=== PATIENT | female | born 1940 ===

== ENCOUNTER 2022-06-21 07:30 | Observation (INO) ==
[~2022-06-21 07:30] MED LIST: Buffered Lidocaine 1% SYRIN 1 ml INTRADERM ONE; Lactated Ringers 1000 ml BAG 1,000 ML IV SCH
[2022-06-21] MEDS ORDERED: Naloxone 0.4 mg VIAL 0.4 mg/ml 1 ml VIAL IV PRN (07:52)
[2022-06-21] MEDS ORDERED: fentaNYL 100 mcg/2 ml 50 MCG/ML VIAL IV PRN (07:52)
[2022-06-21] MEDS ORDERED: Ondansetron 4 mg VIAL 2 MG/ML 2 ml VIAL IV PRN ×2 (07:52→12:30)
[2022-06-21] MEDS ORDERED: oxyCODONE/Acetamin 5/325 mg TAB PO PRN ×2 (07:52→12:38)
[2022-06-21] MEDS ORDERED: ceFAZolin 2 GM PREMIX 2 GM/50 ML BAG ONE (08:40)
[2022-06-21] MEDS ORDERED: fentaNYL 100 mcg/2 ml 50 MCG/ML VIAL ONE ×2 (09:30→10:24)
[2022-06-21] MEDS ORDERED: Ropivacaine 5 MG/ML 20 ML VIAL 0.5% (100 MG) ONE (09:33)
[2022-06-21] MEDS ORDERED: Midazolam 2 mg/2 ml VIAL 1 mg/ml 2 ml VIAL (2 mg) ONE (10:24)
[2022-06-21] MEDS ORDERED: ROPIVACAINE 5 MG/ML 30 ML BTL (0.5%) ONE (10:28)
[2022-06-21] MEDS ORDERED: Ondansetron ODT 4 mg TAB 4 MG TAB PO PRN (12:30)
[2022-06-21] MEDS ORDERED: Magnesium Hydroxide LIQ 30 ML UDC PO PRN (12:30)
[2022-06-21] MEDS ORDERED: Lactulose 30 ml UDC PO PRN (12:30)
[2022-06-21] MEDS ORDERED: Morphine 2 MG/ML SYRINGE IV PRN (12:30)
[2022-06-21] MEDS ORDERED: Lidocaine 4% CREAM (LMX) 5 GM TUBE TOPICAL PRN (12:38)
[2022-06-21] MEDS ORDERED: Al Hydrox/Mg Hydrox/Simet LIQ 30 ML UDC PO PRN (12:38)
[2022-06-21] MEDS: Lactated Ringers 1000 ml BAG 1,000 ML IV SCH (15:15)
[2022-06-21] MEDS: ceFAZolin 1 GM ADVAN 1 GM in NS 0.9% 50 ML 50 ML IVPB SCH (19:39)
[2022-06-21] MEDS: Magnesium Hydroxide LIQ 30 ML UDC PO SCH (21:46)
[2022-06-21] MEDS: Magnesium Chloride EC 64 mgTAB PO SCH (23:05)
[2022-06-22] MEDS: Lactated Ringers 1000 ml BAG 1,000 ML IV SCH (02:22)
[2022-06-22] MEDS: ceFAZolin 1 GM ADVAN 1 GM in NS 0.9% 50 ML 50 ML IVPB SCH ×2 (03:36→11:59)
[2022-06-22 05:49] LABS: Hematocrit 30 % (35-47); Hemoglobin 10.1 g/dL (12.0-16.0); Mean Platelet Volume 7.8 fL (7.4-10.4); Platelet Count 214 10^3/uL (150-450)
[2022-06-22 06:28] LABS: Calcium 8.1 mg/dL (8.6-10.3); Potassium 4.2 mmol/L (3.5-5.0)
[2022-06-22] MEDS: CMCS: Nebivolol 2.5 mg TAB (NF) PO SCH (08:51)
[2022-06-22] MEDS: Magnesium Chloride EC 64 mgTAB PO SCH ×2 (08:52→19:59)
[2022-06-22] MEDS: Vitamin THERAPEUTIC TAB PO SCH (08:53)
[2022-06-22] MEDS: Magnesium Hydroxide LIQ 30 ML UDC PO SCH ×2 (08:55→20:01)
[2022-06-22] MEDS ORDERED: Influenza vaccine *QUAD* *2022-23* 0.5 ML SYRINGE IM ONE (09:00)
[2022-06-22 10:33] LABS: Urine Appearance Clear; Urine Bilirubin Negative (Negative); Urine Blood Negative (Negative); Urine Color Yellow; Urine Glucose Negative (Negative); Urine Ketones Negative (Negative); Urine Nitrite Negative (Negative); Urine Protein Negative (Negative); Urine Specific Gravity 1.015 (1.005-1.030); Urine Urobilinogen 0.2 (Negative) (Negative); Urine pH 6.5 (5.0-9.0)
[2022-06-23 05:21] LABS: ABS Basophils 0.1 10^3/ul (0-0.2); ABS Eosinophils 0.3 10^3/ul (0-0.6); ABS Lymphocytes 1.2 10^3/ul (1.0-4.8); ABS Monocytes 1.2 10^3/ul (0-0.8); ABS Neutrophils 8.5 10^3/ul (1.5-7.7); Eosinophil % 2.7 %; Hematocrit 29 % (35-47); Hemoglobin 9.6 g/dL (12.0-16.0); Lymphocyte % 10.7 %; Mean Corpuscular HGB Conc 33 g/dL (31-36); Mean Corpuscular Hemoglobin 31 pg (27-31); Mean Corpuscular Volume 96 fL (80-97); Mean Platelet Volume 8.2 fL (7.4-10.4); Nucleated Red Blood Cells % 0.1; Platelet Count 171 10^3/uL (150-450); Red Blood Count 3.07 10^6 /uL (3.70-4.87); Red Cell Distribution Width 13 % (10-15); White Blood Count 11.2 10^3/uL (3.5-10.8)
[2022-06-23 05:44] LABS: Calcium 8.1 mg/dL (8.6-10.3); Potassium 4.1 mmol/L (3.5-5.0); eGFR CKD-EPI 63.9 (>60)
[2022-06-23] MEDS: Magnesium Hydroxide LIQ 30 ML UDC PO SCH ×2 (08:18→21:14)
[2022-06-23] MEDS: Vitamin THERAPEUTIC TAB PO SCH (08:18)
[2022-06-23] MEDS: Magnesium Chloride EC 64 mgTAB PO SCH ×2 (08:20→21:13)
[2022-06-23] MEDS: CMCS: Nebivolol 2.5 mg TAB (NF) PO SCH (08:20)
[2022-06-24 06:07] LABS: Hematocrit 26 % (35-47); Hemoglobin 8.6 g/dL (12.0-16.0); Mean Platelet Volume 8.4 fL (7.4-10.4); Platelet Count 173 10^3/uL (150-450)
[2022-06-24 08:01] VITALS: BP 125/60
[2022-06-24] MEDS: Magnesium Hydroxide LIQ 30 ML UDC PO SCH (09:25)
[2022-06-24] MEDS: CMCS: Nebivolol 2.5 mg TAB (NF) PO SCH (09:25)
[2022-06-24] MEDS: Vitamin THERAPEUTIC TAB PO SCH (09:25)
[2022-06-24] MEDS: Magnesium Chloride EC 64 mgTAB PO SCH (09:31)
== END 2022-06-24 11:10 ==
LOC: SSU → AA 08:14 → OBSVTOIN 13:20 → INTOOBSV 13:20
PROVIDERS: ADMIT Orthopaedic Surgery Adult Reconstructive Orthopaedic Surgery; ATTEND Orthopaedic Surgery Adult Reconstructive Orthopaedic Surgery